=== PATIENT | female | born 1950 | race Caucasian/White ===

== ENCOUNTER 2022-05-22 06:20 | Outpatient (CLI) | payer MEDICARE, OTHER ==
[~2022-05-22] VITALS: Ht 152.4 cm; Wt 59.2 kg
[2022-05-22] MEDS ORDERED: ALEN70TA85 PO (11:30)
[2022-05-22] MEDS ORDERED: CALC-308 PO (11:30)
[2022-05-22] MEDS ORDERED: CETI10TA49 PO (11:30)
[2022-05-22] MEDS ORDERED: ATOR10TA66 PO (11:30)
[2022-05-22] MEDS ORDERED: NAPR220T66 PO (11:30)
[2022-05-22] MEDS ORDERED: NFBIOT1000 PO (11:30)
== END 2022-05-22 11:32 ==
LOC: PREOP 06:20
PROVIDERS: ATTEND Surgery
DX: Z01.818 Encounter for other preprocedural examination (principal)

== ENCOUNTER 2022-06-03 08:05 | Day surgery (SDC) | payer MEDICARE, OTHER ==
[~2022-06-03] VITALS: Ht 152.4 cm; Wt 59.2 kg
[~2022-06-03 08:05] MED LIST: ALEN70TA85 PO; ATOR10TA66 PO; CALC-308 PO; CETI10TA49 PO; NAPR220T66 PO; NFBIOT1000 PO
[2022-06-03 08:23] VITALS: BP 147/82
[2022-06-03] MEDS ORDERED: LACTATED RINGERS 1,000 ML IV ONE (08:29)
[2022-06-03] MEDS ORDERED: LACTATED RINGERS 1,000 ML IV STA (08:33)
--- NOTE | 2022-06-03 09:10 | Progress Note-Pre Operative ---
Pre-Operative Progress Note Date of Available H&P: May 16, 2022 Date H&P Reviewed: Jun 03, 2022 Time H&P Reviewed: 09:08 History & Physical: H&P Reviewed, Patient Examed, No changes noted Pre-Operative Diagnosis: Screening colonoscopy, Hx of Pascual's esophagus RUBI MENCHACA DO Jun 03, 2022 09:10
[2022-06-03] MEDS ORDERED: PROPOFOL INJECTION 50 ML IV ONE (09:48)
--- NOTE | 2022-06-03 10:11 | Anesthesia-General Post-Op ---
MAC Patient Condition Mental Status/LOC: Same as Preop Cardiovascular: Satisfactory Nausea/Vomiting: Absent Respiratory: Satisfactory Pain: Controlled Complications: Absent Post Op Complications Complications None Follow Up Care/Instructions Patient Instructions None needed. Anesthesiology Discharge Order Discharge Order Patient is doing well, no complaints, stable vital signs, no apparent adverse anesthesia problems. No complications reported per nursing. PRAMOD MILTON CRNA Jun 03, 2022 10:11
[2022-06-03 10:15] VITALS: BP 99/51
--- NOTE | 2022-06-03 10:18 | Progress Note-Post Operative ---
Post-Operative Progess Note Surgeon (s)/Director Of Radiology (s) Surgeon RUBI MENCHACA DO Director Of Radiology: Paul Du MSIII Pre-Operative Diagnosis Screening colonoscopy Post-Operative Diagnosis Polyps int hemorrhoids Procedure & Operative Findings Date of Procedure 06/03/22 Procedure Performed/Findings Colonoscopy with snare Colonoscopy with cold bx PROCEDURE NOTE: After informed consent was obtained, the patient was brought to the endoscopy suite, placed in bed in left lateral decubitus position. She was administered IV sedation by the PRESCHOOL ASSISTANT who then monitored her vitals the entire time, heart rate, blood pressure and pulse ox and the scope was inserted, pushed all the way to about 150 cm and pushed into the cecum, took a picture of appendiceal orifice and noted the ileocecal valve. Then slowly withdrew the scope insufflating to look circumferentially at the sommers starting in the cecum, up the ascending colon to the hepatic flexure, then down the transverse colon, splenic flexure, into the descending colon and down into the sigmoid. I first encountered a small flat polyp in the Sigmoid and elected to remove it with cold biopsy. Just distal to the initial polyp was another larger polyp and I removed it completely with snare polypectomy. Finally into the rectal vault and retroflexed the scope; took a picture of the internal hemorrhoids. The patient tolerated the procedure. She was recovered in endoscopy suite. Recommended for repeat colonoscopy in 5 years. Anesthesia Type IV sedation by PRESCHOOL ASSISTANT Estimated Blood Loss Estimated blood loss (mL): scant Specimens/Packing Specimens Removed Sigmoid polyp x 2 RUBI MENCHACA DO Jun 03, 2022 10:18
--- NOTE | 2022-06-03 10:18 | Endoscopy Discharge Instruct ---
Endo Procedure/Findings Findings 1.: Polyp 2.: Internal Hemorrhoids Discharge Instructions - Activity: You might feel a little sleepy until tomorrow. This is due to the medicine you received to relax you. Until tomorrow, you should: NOT drive a car, operate machinery or power tools. NOT drink any alcoholic beverages. NOT make any important decisions or sign importortant papers. Do not return to work until tomorrow, unless otherwise instructed. Resume previous activities tomorrow. Diet: Start by taking liquids. If you tolerate liquids, advance to solid food. 1.: Colonscopy in 5 years Notify Physician - If you experience excessive bleeding, unusual abdominal pain, fever, or chest pain, contact your doctor immediately. RUBI MENCHACA DO Jun 03, 2022 10:18
[2022-06-03 10:20] VITALS: BP 105/58
[2022-06-03 10:25] VITALS: BP 111/58
[2022-06-03 10:53] VITALS: BP 111/58
== END 2022-06-03 11:18 | disposition home or self-care (01) ==
LOC: ENDO 08:05
PROVIDERS: ATTEND Surgery
DX: Z12.11 Encounter for screening for malignant neoplasm of colon (principal); D12.5 Benign neoplasm of sigmoid colon; K64.8 Other hemorrhoids; K63.5 Polyp of colon
CPT/HCPCS: 88305